=== PATIENT | male | born 1970 | race Caucasian/White ===

== ENCOUNTER → 2023-10-31 11:12 | Outpatient (REF) | payer BC, SELFPAY | LOC: RAD 11:12 | PROVIDERS: ATTENDING PHYSICIAN Student in an Organized Health Care Education/Training Program | DX: M25.571 Pain in right ankle and joints of right foot (principal); M25.572 Pain in left ankle and joints of left foot | CPT/HCPCS: 73610 ==

== ENCOUNTER → 2024-09-27 09:00 | Outpatient (REF) | payer BC, SELFPAY | LOC: RAD 09:00 | PROVIDERS: ATTENDING PHYSICIAN Student in an Organized Health Care Education/Training Program | DX: R10.13 Epigastric pain (principal); R10.12 Left upper quadrant pain; R00.2 Palpitations; R00.0 Tachycardia, unspecified | CPT/HCPCS: 76700; 93225; 93226; 93306 ==

== ENCOUNTER → 2024-10-01 13:16 | Outpatient (REF) | payer BC, SELFPAY | LOC: RCS 13:16 | PROVIDERS: ATTENDING PHYSICIAN Student in an Organized Health Care Education/Training Program | DX: R06.09 Other forms of dyspnea (principal) | CPT/HCPCS: 93017; 93350 ==

== ENCOUNTER → 2024-10-18 14:12 | Outpatient (REF) | payer BC, SELFPAY | LOC: MRI 14:12 | PROVIDERS: ATTENDING PHYSICIAN Psychiatry & Neurology Neurology; FAMILY PHYSICIAN Student in an Organized Health Care Education/Training Program | DX: R42 Dizziness and giddiness (principal) | CPT/HCPCS: 70551; 72141 ==

== ENCOUNTER 2025-01-14 06:17 | Day surgery (SDC) | payer BC, SELFPAY | END 2025-01-14 11:23 | disposition home or self-care (01) | LOC: GI 06:17 | PROVIDERS: ATTENDING PHYSICIAN Internal Medicine Gastroenterology; FAMILY PHYSICIAN Student in an Organized Health Care Education/Training Program | DX: Z12.11 Encounter for screening for malignant neoplasm of colon (principal); K57.30 Diverticulosis of large intestine without perforation or abscess without bleeding; K64.8 Other hemorrhoids; K29.70 Gastritis, unspecified, without bleeding; K31.7 Polyp of stomach and duodenum; Z86.0100 Personal history of colon polyps, unspecified | CPT/HCPCS: 43239; G0105; 88305; 88342 ==